=== PATIENT | female | born 1965 | race African-American/Black ===

== ENCOUNTER 2020-08-12 16:18 | Outpatient (REF) | payer SELFPAY ==
[2020-08-14 13:32] LABS: Anti DNA DS Antibody <1 IU/mL
[2020-08-14 23:42] LABS: Anti Nuclear Antibody Pattern Nuclear, Nucleolar; Anti Nuclear Antibody Screen POSITIVE (NEGATIVE)
== END 2020-08-12 16:19 | disposition home or self-care (01) ==
LOC: HO.LAB 16:18
PROVIDERS: PCP Internal Medicine; Visit Provider Psychiatry & Neurology Neurology
DX: M79.643 Pain in unspecified hand (principal)
CPT/HCPCS: 36415; 86038; 86039; 86225